=== PATIENT | female | born 1935 | race African-American/Black ===

== ENCOUNTER → 2017-05-30 | Outpatient (CLI) | payer MEDICARE, OTHER ==
[~2017-05-30] MED LIST: ATENOLOL25 MG PO; BACTRIM DS TABL1 TA1 PO; BENADRYL25 M1 PO; CHEWABLE ASPIRI81 MG PO; FELODIPINE ER5 MG PO; FOSAMAX70 MG PO; KEFLEX500 MG PO; LORTAB 10-5001 EACH PO; PREDNISONE PO; SIMVASTATIN40 MG PO; TENORMIN50 MG PO; TRIAMTERENE-HC1 EACH PO
--- NOTE | ~2017-05-30 | MY29 ---
[facility] A Service of [facility] RADIOLOGY TEXT RESULTS PATIENT: GARY JAUREGUI LOCATION: [facility] : 39 UNIT #: [id number] AGE: [address]: Kemi Ordaz MD SEX: F ORDER DR: [id number] [facility] [address]. [place], [place] [address] [id number] O MR#: [id number] Acc #: [id number] NAME: GARY JAUREGUI : 1935 SEX: F STUDY DATE/TIME: 05/30/2017 11:02 UNIT: [facility] ROOM: STUDY DESCRIPTION: MY LANDRY SCREENING W/ CAD BILAT Attending Physician: Kemi Ordaz M.D. Ordering Physician: Kemi Ordaz M.D. Primary Care Physician: Kemi Ordaz M.D. MEDICAL IMAGING REPORT This report is preliminary unless electronic signature is present EXAM Digital screening mammogram 05/30/2017 HISTORY 82-year-old woman positive family history, daughter age 42. Annual screen. COMPARISON Mammograms date to 12/12/2006 with most recent 05/28/2016 FINDINGS Digital imaging of each breast was completed utilizing screening protocol. Review includes FDA-approved CAD device. Breast parenchyma is predominantly fatty replaced bilaterally. Bilateral nipple inversion is present and stable. There is no interval occurring mass. There are no suspicious microcalcifications and no architectural deformity. IMPRESSION Negative mammogram. Annual screening recommended. Patients over the age of 40 are entered into a reminder system with target due date for the next mammogram. A result letter will also be sent to the patient. BIRADS: 1, negative. Dictated by... Lyle Pugh M.D. THIS IS AN ELECTRONICALLY VERIFIED REPORT Lyle Pugh M.D. at 05/30/2017 3:44 PM AME/samy [facility] A Service of [facility] RADIOLOGY TEXT RESULTS PATIENT: GARY JAUREGUI LOCATION: [facility] : 39 UNIT #: [id number] AGE: [address]: Kemi Ordaz MD SEX: F ORDER DR: TD: 05/30/2017 15:21 JOB #: [id number] MEDICAL IMAGING REPORT Page 1 of 1 COPY
== END | disposition home or self-care (01) ==
LOC: CWCC 10:28
DX: Z12.31 Encounter for screening mammogram for malignant neoplasm of breast (principal); Z80.3 Family history of malignant neoplasm of breast
CPT/HCPCS: G0202